=== PATIENT | female | born 1990 | race Hispanic/Latino ===

== ENCOUNTER 2017-05-17 18:31 | Emergency (ER) | payer SELFPAY ==
[2017-05-17] MEDS ORDERED: Acetaminophen 500 MG TAB ONE (19:40)
[2017-05-17] MEDS ORDERED: Ibuprofen 800 MG TAB ONE (19:40)
== END 2017-05-17 19:44 | disposition home or self-care (01) ==
LOC: NAV ERS 18:31
DX: J11.1 Influenza due to unidentified influenza virus with other respiratory manifestations (principal)
CPT/HCPCS: 99283

== ENCOUNTER 2017-06-23 14:23 | Emergency (ER) | payer SELFPAY ==
--- NOTE | 2017-06-23 15:46 | RAD ---
PA AND LATERAL CHEST: History: Difficulty breathing, chest pain. FINDINGS: The heart size is normal. No focal areas of consolidation, pneumothorax, or pleural effusions are see n. No acute osseous abnormalities are identified. IMPRESSION: No radiographic evidence of acute cardiopulmonary process. POS: [facility]
== END 2017-06-23 16:12 | disposition home or self-care (01) ==
LOC: NAV ERS 14:23
DX: F43.9 Reaction to severe stress, unspecified (principal); R00.2 Palpitations; F41.9 Anxiety disorder, unspecified; J45.909 Unspecified asthma, uncomplicated
CPT/HCPCS: 71046; 93005